=== PATIENT | male | born 1990 | race African-American/Black ===

== ENCOUNTER 2019-02-12 12:33 | Emergency (ER) | payer SELFPAY ==
[~2019-02-12] VITALS: Ht 193 cm; Wt 105.0 kg
[2019-02-12] MEDS ORDERED: KETOROLAC TROMETHAMINE 30 MG/ML VIAL IM ONE (13:15)
[2019-02-12] MEDS ORDERED: TiZANidine HCL 4 MG TABLET PO ONE (13:15)
[2019-02-12] MEDS ORDERED: HYDROmorphone 2 MG/ML SYRINGE IM ONE (13:15)
[2019-02-12 13:52] VITALS: BP 130/76
== END 2019-02-12 14:51 | disposition home or self-care (01) ==
LOC: EMS 12:35
DX: M54.42 Lumbago with sciatica, left side (principal)
CPT/HCPCS: 96372; 99283; J1170; J1885